=== PATIENT | male | born 1950 | race Caucasian/White ===

== ENCOUNTER → 2020-06-03 | Outpatient (CLI) | payer MEDICARE ==
[2015-01-31 12:03] VITALS: BP 116/64
[~2020-06-03] MED LIST: CELEXA20 M1 PO; CRESTOR40 MG PO; LOPRESSOR 225 MG/TAB PO; LOTRISONE 0.05%1 CRE TP; NITROSTAT0.4 M1 SL; NORVASC 5MG5 MG/TAB PO; PERCOCET 325 MG1 TA2 PO; PLAVIX 75MG TAB75 MG PO; PRILOSEC 20MG20 MG PO; PRINIVIL20 M1 PO; SUNMARK ENTERI325 MG PO; TRAZODONE HYDRO50 MG PO; TRICOR145 M1 PO; XARELTO15 MG PO; XARELTO20 MG PO
== END ==
LOC: LAB 13:55
DX: Z01.812 Encounter for preprocedural laboratory examination (principal); Z20.822 Contact with and (suspected) exposure to COVID-19

== ENCOUNTER → 2020-06-06 | Day surgery (SDC) | payer MEDICARE ==
[2015-01-31 12:03] VITALS: BP 116/64
== END | disposition home or self-care (01) ==
LOC: MSO 07:24
DX: D12.2 Benign neoplasm of ascending colon (principal); D12.0 Benign neoplasm of cecum; D12.5 Benign neoplasm of sigmoid colon; D68.59 Other primary thrombophilia; I69.398 Other sequelae of cerebral infarction; I10 Essential (primary) hypertension; K21.9 Gastro-esophageal reflux disease without esophagitis; E78.5 Hyperlipidemia, unspecified; Z79.01 Long term (current) use of anticoagulants; Z86.711 Personal history of pulmonary embolism; Z88.5 Allergy status to narcotic agent; Z79.82 Long term (current) use of aspirin; Z87.891 Personal history of nicotine dependence; Z95.9 Presence of cardiac and vascular implant and graft, unspecified; Z79.899 Other long term (current) drug therapy; F32.9 Major depressive disorder, single episode, unspecified; Z79.891 Long term (current) use of opiate analgesic; G89.29 Other chronic pain
CPT/HCPCS: 00811; J2704; J7120

== ENCOUNTER → 2021-02-17 | Outpatient (CLI) | payer MEDICARE | LOC: VAS 14:40 → RAD 15:00 | DX: Z86.73 Personal history of transient ischemic attack (TIA), and cerebral infarction without residual deficits (principal) ==

== ENCOUNTER → 2021-05-22 | Outpatient (CLI) | payer MEDICARE | LOC: RAD 16:00 | DX: G93.89 Other specified disorders of brain (principal) | CPT/HCPCS: A9585 ==

== ENCOUNTER → 2023-01-29 | Outpatient (CLI) | payer MEDICARE | LOC: RAD 12:16 | DX: M51.36 Other intervertebral disc degeneration, lumbar region (principal) ==

== ENCOUNTER → 2023-04-23 | Outpatient (CLI) | payer MEDICARE | LOC: RAD 15:57 | DX: R05.9 Cough, unspecified (principal) ==

== ENCOUNTER → 2023-10-14 | Outpatient (CLI) | payer MEDICARE | LOC: RAD 14:52 | DX: M79.672 Pain in left foot (principal) ==

== ENCOUNTER → 2024-02-08 | Outpatient (CLI) | payer MEDICARE | LOC: RAD 14:55 | DX: M19.011 Primary osteoarthritis, right shoulder (principal) ==